=== PATIENT | male | born 1960 | race Caucasian/White ===

== ENCOUNTER → 2017-12-11 | Outpatient (CLI) | payer OTHER | LOC: RAD 13:54 | DX: M16.11 Unilateral primary osteoarthritis, right hip (principal) ==

== ENCOUNTER 2018-09-26 08:42 | Emergency (ER) | payer OTHER ==
[~2018-09-26] VITALS: Ht 167.6 cm; Wt 63.5 kg
[2018-09-26] MEDS ORDERED: NORFLEX100 MG PO (10:04)
[2018-09-26] MEDS ORDERED: NAPROSYN500 MG PO (10:04)
[2018-09-26 10:10] VITALS: BP 110/72
== END 2018-09-26 10:10 | disposition home or self-care (01) ==
LOC: ER 08:42
DX: S20.221A Contusion of right back wall of thorax, initial encounter (principal); F17.210 Nicotine dependence, cigarettes, uncomplicated; W18.39XA Other fall on same level, initial encounter; Y92.89 Other specified places as the place of occurrence of the external cause; Y99.0 Civilian activity done for income or pay; Y99.8 Other external cause status

== ENCOUNTER 2018-11-19 05:34 | Inpatient (IN) | payer OTHER ==
[2018-11-11 12:45] LABS: HEMATOCRIT 40.5 % (42.0-52.0); HEMOGLOBIN 13.6 gm/dL (14.0-18.0); MCH 33.1 pg (26.0-34.0); MCHC 33.7 g/dL (28.0-37.0); MCV 98.3 fL (80.0-100.0); RBC 4.12 mil/uL (4.50-6.00); RDW 13.9 % (10.5-14.5); URINE CLARITY CLEAR; URINE COLOR YELLOW; URINE PROTEIN (DIPSTICK) NEGATIVE (Negative); URINE SPECIFIC GRAVITY 1.025 (1.005-1.035); WBC 6.4 thou/uL (4.0-11.0)
[2018-11-11 12:46] LABS: URINE BILIRUBIN NEGATIVE (Negative); URINE BLOOD NEGATIVE (Negative); URINE GLUCOSE-RANDOM* NEGATIVE (Negative); URINE KETONES NEGATIVE (Negative); URINE LEUKOCYTES-REFLEX NEGATIVE (Negative); URINE NITRITE-REFLEX NEGATIVE (Negative); URINE UROBILINOGEN 0.2 E.U./dl (0.2-1.0)
[2018-11-11 12:52] LABS: ALBUMIN 4.3 g/dL (3.4-5.0); CALCIUM 9.2 mg/dL (8.5-10.1); CREATININE 0.7 mg/dL (0.7-1.3); POTASSIUM 4.1 mmol/L (3.5-5.1)
[2018-11-11 12:53] LABS: PROTIME 9.5 Seconds (9.3-11.4)
--- NOTE | 2018-11-11 13:26 | EKG ---
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
[~2018-11-19] VITALS: Ht 167.6 cm; Wt 63.5 kg
[~2018-11-19 05:34] MED LIST: NAPROSYN500 MG PO; NORFLEX100 MG PO; TYLENOL 8 HOUR650 MG PO
[2018-11-19 09:08] VITALS: BP 132/72
[2018-11-19 13:17] VITALS: BP 121/73
[2018-11-19 13:34] VITALS: BP 141/79
[2018-11-19 14:34] VITALS: BP 125/64
--- NOTE | 2018-11-19 15:33 | NUR ---
PT ADMITTED RELATED TO RIGHT TOTAL HIP REPLACEMENT. CM REVIEWED CHART AND SPOKE WITH CARE TEAM. PT IS A&O X4. CM ROLE INTRODUCED. PT INDICATED HE LIVES IN A HOUSE WITH HIS SPOUSE WHO WORKS IN THE OR HERE AT [facility]. PT INDICTED THERE ARE 3 STEPS TO ENTER HIS HOME AND 5 STEPS TO BEDROOM AND BATHROOM. PT WILL NEED A FWW FOR HOME USE. CM SENT ORDER TO [facility] THEY ARE IN NETWORK WITH [facility]. PT INDICATED HE HAS AN OP PT APPOINTMENT SUNDAY HERE AT [facility]. PT INDICATED HE HOPES TO RETURN HOME THIS EVENING. CM FOLLOWING INDICATED WITH DC PLANNING.
[2018-11-19] MEDS ORDERED: TRI-BUFFERED A325 M1 PO (19:27)
[2018-11-19] MEDS ORDERED: MS CONTIN15 MG PO (19:27)
[2018-11-19] MEDS ORDERED: NEURONTIN 300300 M1 PO (19:28)
[2018-11-19] MEDS ORDERED: PERCOCET PO (19:28)
[2018-11-19] MEDS ORDERED: ONDANSETRON HCL4 M1 IV PUSH (19:29)
[2018-11-19 19:31] VITALS: BP 121/72
[2018-11-19 19:36] VITALS: BP 121/72
--- NOTE | 2018-11-19 19:42 | NUR ---
RECEVIED THE PT FROM SURGERY. S/P R HIP TR WITH . VSS. AXOX4 AND ANSWERS QUESTIONS APPROPIRATELY. AT BEDSIDE. REPORTED LIGHT PAIN UPON ARRIVAL. ADMINISTERED NORCO. REPORTED GREAT RELIEF. TOLERATED DIET WELL, PT CLEARED PT AND PERMITTED FOR UP AD HARJIT. IV FLUID AND ATB WAS GIVEN. PT URINATED IN TOILET. AROUND DINNER TIME ADMIN ANOTHER DOSE OF NORCO. PER PT AND PT'S , THE WALKER IS BEING DELIEVERD TO THE HOUSE THIS EVENING AND PT REALLY WANTS TO GO HOME. CALLED AND REPORTED PT'S REQUEST. PRECRIPTION WAS ALREADY GIVEN AND FILLED BEFORE ADMISSION TO THIS HOSPITAL. GAVE D/C ORDER. PT WILL BE D/C THIS EVENING AND GAVE REPORT TO THE [facility] NURSE TO FOLLOW UP.
--- NOTE | 2018-11-20 19:04 | O ---
[facility] [place] [address] OPERATIVE REPORT Name: ROSALINA PARK V Room #: 457-P [facility] IN M.R.#: [id number] Admission: 11/19/18 Attend Phys: Cody Sanchez MD Discharge: 11/19/18 Date of : 62 Report #: [id number] THIS REPORT FOR: //name// CC: Shital Ojeda Cody Sanchez DATE OF SERVICE: 11/19/2018 PREOPERATIVE DIAGNOSIS: Right hip osteoarthritis. POSTOPERATIVE DIAGNOSIS: Right hip osteoarthritis. PROCEDURE: Right total hip arthroplasty. SURGEON: Cody Sanchez MD. BACK HOE OPERATOR: Apolonia Mancuso PA-C. INDICATIONS FOR BACK HOE OPERATOR: Throughout the case, extensive retraction and manipulation of the hip was required including dislocation and reduction. This was afforded to me by my porcelain buildup assistant. ANESTHESIA: LMA. IMPLANTS: Mars and Nephew size 14 high offset Synergy press fit stem, a size 56 R3 acetabular cup with a size 40+4 Oxinium head. ESTIMATED BLOOD LOSS: 50 mL. COMPLICATIONS: None. SPECIMENS: None. CONDITION UPON LEAVING THE OPERATING ROOM: Stable. INDICATION FOR PROCEDURE: The patient is a 58-year-old gentleman with severe right hip osteoarthritis. He had failed conservative measures for this and after discussion with him, he elected for right total hip arthroplasty. DESCRIPTION OF PROCEDURE: Risks, benefits, alternatives and complications were discussed in detail with the patient including, but not limited to risk of anesthesia, risk of damage to nerves, arteries, blood vessels, risk for infection, bleeding, risk for continued hip pain, leg length discrepancy, instability and need for reoperation. Informed consent was obtained from the patient. Right hip was appropriately marked in the preoperative holding area. IV Ancef was given for preoperative antibiotics. He was brought to the [facility] [address] [place] [address] OPERATIVE REPORT Name: ROSALINA PARK V Room #: 457-P DIS IN .R.#: [id number] Admission: 11/19/18 Attend Phys: Cody Sanchez MD Discharge: 11/19/18 Date of : 62 Report #: [id number] operating room and placed in supine position on operating room table. LMA anesthesia was induced without complications and placed in the left lateral decubitus position with right hip uppermost. Right hip and lower extremity were then prepped and draped in normal sterile fashion. Timeout was performed properly identifying the patient and procedure as well as the instrumentation and implants. All in the operating room were in agreement. Standard posterior approach to the hip was made with 10 blade through the skin. Dissection was taken down to fascia with Bovie cautery and this was cleaned off with Villalpando elevator. Fresh 10 blade was used to make a fascial incision. This was taken proximally and distally with curved Humphries scissor. Charnley retractor was placed. Trochanteric bursa was taken down with Bovie cautery. Piriformis tendon was identified, tagged and taken down with Bovie. Short external rotators were also taken down with Bovie cautery. Capsulotomy was made and capsule ends were tagged for later repair. Hip was dislocated and there was extensive osteoarthritic change of the femoral head. Femoral neck cut was made 1 cm proximal to lesser trochanter based on preoperative templating. The femoral head was removed. Deep acetabular retractors were placed and the labrum was removed sharply. Pulvinar was removed with Bovie cautery. The acetabulum was then sequentially reamed up to a 56 at which point, there was excellent bleeding cancellous bone. This was trialed with a size 55 cup and found to have a good fit. A final size 56 R3 acetabular cup was placed and seated. One acetabular screw was placed for backup fixation. Polyethylene liner for a size 40 head was placed. Attention was then turned to the femur. This was reamed and broached up to a size 14, at which point, the size 14 broach was stable. This was trialed with a high offset neck and a 40+0 head. Hip was reduced, taken through range of motion, found to be stable, found to be somewhat short on the right compared to the left and was felt this could be made up for with final implant. Hip was dislocated and the broach was removed. A final size 14 high offset Synergy press fit stem was placed and seated. This was trialed again with a 40+4 head. Hip was reduced, taken through range of motion, found to be stable, found to have equal leg lengths. Hip was dislocated one last time and a final size 40+4 Oxinium head was placed. Hip was reduced, taken through range of motion, found to be stable, found to have equal leg lengths. Wound was thoroughly irrigated with normal saline. A periarticular injection consisting of morphine, ropivacaine, epinephrine and Toradol was placed around the hip joint capsule. A gram of vancomycin was placed deep in the joint. The capsule and piriformis were repaired with 0 FiberWire. Fascia was closed with 0 Vicryl, skin was closed with 2-0 Vicryl and 3-0 Monocryl. Dermabond and a KELSEY dressing was applied. The patient tolerated this procedure well and went to the recovery room under care of anesthesia postoperatively. <ELECTRONICALLY SIGNED> By: Cody Sanchez MD 11/20/18 1904 1104 1115 Cody Sanchez MD /maria fernanda
== END 2018-11-19 20:19 | disposition home or self-care (01) | DRG 470 ==
LOC: PRE 05:34 → TBA 05:38 → PRE 10:52 → 4W 13:13
PROVIDERS: ADMIT Orthopaedic Surgery
PROC: 0SR906A Replacement of Right Hip Joint with Oxidized Zirconium on Polyethylene Synthetic Substitute, Uncemented, Open Approach (ICD-10-PCS; principal; 2018-11-19)
DX: M16.11 Unilateral primary osteoarthritis, right hip (principal); I10 Essential (primary) hypertension; F17.210 Nicotine dependence, cigarettes, uncomplicated; Z79.899 Other long term (current) drug therapy; Z88.0 Allergy status to penicillin
CPT/HCPCS: 10047; 50010; 50101; 50382; 50414; 53000; 53078; 53368; 54118; 56524; 56527; 56528; 56530; 57095; 57103; 62110; 62900; 70005

== ENCOUNTER → 2020-12-03 | Outpatient (CLI) | payer OTHER ==
[~2020-12-03] MED LIST changes: +MS CONTIN15 MG PO; +NEURONTIN 300300 M1 PO; +ONDANSETRON HCL4 M1 IV PUSH; +PERCOCET PO; +TRI-BUFFERED A325 M1 PO
== END ==
LOC: LAB 13:33
PROVIDERS: ATTEND Specialist
DX: Z01.812 Encounter for preprocedural laboratory examination (principal); Z20.822 Contact with and (suspected) exposure to COVID-19

== ENCOUNTER → 2020-12-08 | Outpatient (CLI) | payer OTHER ==
[~2020-12-08] VITALS: Ht 167.6 cm; Wt 63.5 kg
--- NOTE | 2020-12-08 15:20 | P ---
[facility] [place] [address] PROCEDURE REPORT Name: ROSALINA PARK V Room #: [facility] Katherine#: [id number] Admission: 12/08/20 Attend Phys: Yannick Caal Discharge: Date of : 62 Report #: [id number] THIS REPORT FOR: cc: Shital Ojeda DNP, Mary E. DNP McElhinney, Christian C. MD ~ DATE OF SERVICE: 12/08/2020 PROCEDURE PERFORMED: Colonoscopy. HISTORY OF PRESENT ILLNESS: The patient is a 60-year-old male who presents today for routine screening colonoscopy. No previous history of colonoscopy. He denies any symptoms. No family history of colon cancer. DESCRIPTION OF PROCEDURE: The risks and benefits of the procedure were explained to the patient, those risks including but not limited to bleeding, perforation and the risk of sedation. He understood these risks and gave informed consent. Sedation was given using propofol per anesthesia. Next, a digital rectal exam was performed, which was normal. Next, using a standard Olympus colonoscope, the scope was placed in the patient's anus and advanced under direct vision to the cecum. The overall prep was good. The cecum and ileocecal valve were normal in appearance. The ascending, transverse, descending and sigmoid colon were all normal. The rectal mucosa was normal. On retroflexion, no abnormalities were noted. The scope was then withdrawn and the procedure terminated. The patient tolerated the procedure well. IMPRESSION: Normal colonoscopy. RECOMMENDATIONS: Repeat colonoscopy in 10 years. Thank you for allowing me to participate in his care. <ELECTRONICALLY SIGNED> By: Yannick Lawrence MD 12/08/20 1520 0937 0942 Yannick Lawrence MD /nt
== END | disposition home or self-care (01) ==
LOC: GI 07:42
PROVIDERS: ATTEND Specialist
DX: Z12.11 Encounter for screening for malignant neoplasm of colon (principal); F17.210 Nicotine dependence, cigarettes, uncomplicated; Z98.890 Other specified postprocedural states; Z79.899 Other long term (current) drug therapy; Z96.641 Presence of right artificial hip joint; Z88.0 Allergy status to penicillin
CPT/HCPCS: 62110; 62900